=== PATIENT | female | born 1960 | race Caucasian/White ===

== ENCOUNTER 2021-05-04 07:24 | Outpatient (CLI) | payer BC, SELFPAY ==
--- NOTE | ~2021-05-04 | US_ITS ---
EXAMINATION: US right upper quadrant EXAM DATE: 05/04/2021 07:47 INDICATION: Elevated liver function tests. TECHNIQUE: Multiple grayscale and Doppler images of the abdomen right upper quadrant were obtained (b y a technologist who performed the scan) and subsequently reviewed. There is no prior study for yamini villalobos. FINDINGS: The pancreatic head and body are normal in appearance. The pancreatic tail is not visualized. The l iver has normal echogenicity and contour. There are no focal liver lesions identified. There is no evidence of intrahepatic biliary duct dilation. Portal venous flow was seen in the hepatopedal, nor mal direction and has normal Doppler waveform. No right-sided hydronephrosis. Common bile duct measures 2 mm, which is normal. The gallbladder wall is normal in thickness, with ex pected amount of distention. No sonographic evidence of pericholecystic fluid. There is no cholelit hiases. Technologist performing exam reports patient did not demonstrate sonographic Lozano's sign. Please note that this sign is less reliable in patients who have received pain medication. IMPRESSION: 1. Unremarkable abdominal ultrasound exam. Reviewed, dictated and finalized at location A. STAFF
== END 2021-05-04 07:25 | disposition home or self-care (01) ==
LOC: CHSIMG 07:27
PROVIDERS: PCP Nurse Practitioner; Visit Provider Nurse Practitioner
DX: R79.89 Other specified abnormal findings of blood chemistry (principal)
CPT/HCPCS: 76705

== ENCOUNTER 2021-07-19 19:15 | Emergency (ER) | payer BC, SELFPAY ==
--- NOTE | ~2021-07-19 | CT_ITS ---
EXAMINATION: CTA brain EXAM DATE: 07/19/2021 21:03 INDICATION: Worst headache in 8 years TECHNIQUE: Noncontrast head CT. Spiral CT angiogram cerebral arteries performed with intravenous in jection of 100 mL Omnipaque 350. Axial, coronal and sagittal images reviewed. Additional reformatted images created on dedicated 3-D workstation. The dose-length product (DLP) for this examination was 902.02 mGy-cm. The exposure was tailored according to patient size, and iterative reconstruction ( ASIR) was used as additional dose reduction technique. There is no prior study for comparison. FINDINGS: Carotid siphons are unremarkable. Right vertebral artery is dominant. There is left-sided p osterior communicating artery dominant posterior cerebral artery. There is no distal carotid or vert ebral basilar arterial dissection or fibromuscular dysplasia. There are no cerebral artery aneurysms. There is symmetric cerebral artery arborization. The sagittal, transverse and sigmoid sinuses enhanc e normally, no venous sinus thrombosis. Internal cerebral veins also enhance normally. There is no acute intraparenchymal hemorrhage. No evidence of intraparenchymal brain mass lesion. N o evidence of acute infarction. There is no mass effect or midline shift. There is no obstructive hyd rocephalus suspected. There are no extra-axial collections. IMPRESSION: No acute intracranial findings or cerebral artery aneurysm. Unremarkable exam. Reviewed, dictated and finalized at location G. IMPRESSION: No acute intracranial findings or cerebral artery aneurysm. Unremar kable exam.
[2021-07-19 19:20] VITALS: BP 180/96; PULSE 76; RESP 20; TEMP 35.7; O2SAT 98
--- NOTE | 2021-07-19 19:20 | ED.HA ---
HPI - Headache General Chief Complaint: Headache Stated Complaint: migraine, vomiting Time Seen by Provider: 07/19/21 19:21 Source: patient and RN notes reviewed Mode of arrival: ambulatory Limitations: no limitations History of Present Illness MD elicited complaint: migraine Onset (ago): hour(s) (4.5) Onset description: suddenly Location: diffuse and band-like Severity: moderate Quality & Timing: squeezing and progressively worsening Exacerbating factors: light and noise Relieving factors: nothing Context: occurred at rest Associated symptoms: nausea and vomiting Treatments prior to arrival: none Related Data Home Medications Medication Instructions Recorded Confirmed sertraline 100 mg PO HS 07/19/21 07/19/21 Allergies Allergy/AdvReac Type Severity Reaction Status Date / Time No Known Allergies Allergy Verified 07/19/21 19:28 Review of Systems Review of Systems: All systems reviewed & are unremarkable except as noted in HPI and below Constitutional: Constitutional: Denies chills and Denies fever(s) Gastrointestinal: Gastrointestinal: Denies diarrhea PMFSH Past Medical History Medical History (Updated 07/20/21 @ 00:00 by Kendrick Dagreg) Depression Migraine Exam Const: General: healthy appearing and no acute distress Nutritional Appearance: well nourished Orientation/consciousness: patient oriented x3 HENMT: Head: normal to inspection Ears: external ears normal and TM's normal bilaterally General nose exam: Normal external nose present Face and sinus: normal facial exam Mouth: Yes moist mucous membranes abnormal Eyes: Conjunctivae: conjunctivae normal Pupils: Equal, round and reactive pupils present EOM: EOMs intact bilaterally Direct Ophthalmoscopy: photophobia Neck: Neck: normal visual inspection Resp: Effort & Inspection: normal respiratory effort Auscultation: clear to auscultation bilaterally Cardio: Rate: regular rate Rhythm: regular rhythm GI: GI Palp: Yes Soft to palpation and No Tenderness to palpation present (GI) Auscultation: normal bowel sounds Back/Spine/Pelvis: Cervical Spine: cervical ROM normal Thoracic/Lumbar Spine: thoraco-lumbar ROM normal Skin: General skin exam: normal color Rashes: no rashes Neuro: General: patient oriented x3, moves all extremities, no meningeal signs, no focal motor deficits and CN's II-XI intact bilaterally Cranial nerves: Yes Nystagmus not present Speech: normal speech Gait exam (Neuro): Normal gait present Extrem: General: normal to inspection and no clubbing, cyanosis or edema Psych: Appearance: grossly normal and well kempt Mental Status: mental status grossly normal Affect: normal affect Attitude: cooperative Thought content: Yes Normal thought content present Course Vital Signs Vital signs: Vital Signs Temperature 35.7 C L 07/19/21 19:20 Pulse Rate 76 07/19/21 19:20 Respiratory Rate 20 07/19/21 19:20 Blood Pressure 180/96 H 07/19/21 19:20 Pulse Oximetry 98 07/19/21 19:20 Temperature 36.6 C 07/19/21 21:51 Pulse Rate 70 07/19/21 21:51 Respiratory Rate 20 07/19/21 21:51 Blood Pressure 158/95 H 07/19/21 21:51 Pulse Oximetry 98 07/19/21 21:51 MDM - Headache Lab Data Result diagrams: 07/19/21 19:47 07/19/21 19:47 Labs: Lab Results 07/19/21 07/19/21 Range/Units 19:47 19:47 WBC 8.6 (4.8-10.8) K/mm3 RBC 5.27 (4.20-5.40) M/mm3 Hgb 15.6 H (12.0-15.0) g/dL Hct 48.1 (35.0-49.0) % MCV 91.3 (78.0-102.0) fL MCH 29.6 (27.0-31.0) pg MCHC 32.4 (32.0-36.0) g/dL RDW 15.0 H (11.6-14.4) % Plt Count 143 L (150-420) K/mm3 MPV 12.9 H (9.2-11.8) fl Immature Gran % (Auto) 0.5 H (0.0-0.0) % Neut % (Auto) 54.4 (50.0-70.0) % Lymph % (Auto) 32.4 (18.0-42.0) % [place] % (Auto) 8.2 (2.0-11.0) % Eos % (Auto) 3.7 (1.0-6.0) % Baso % (Auto) 0.8 (0.0-1.0) % Lymph # (Auto) 2.77 (1.10-4.50) K/mm3 [place] # (Aut
[2021-07-19] MEDS: ONDANSETRON INJ 4 MG/2 ML VIAL IV PUSH ×2 (19:42→21:28)
[2021-07-19 19:54] LABS: Basophils Absolute Auto 0.07 K/mm3 (0.00-0.10); Basophils Percent Auto 0.8 % (0.0-1.0); Eosinophils Absolute Auto 0.32 K/mm3 (0.02-0.50); Eosinophils Percent Auto 3.7 % (1.0-6.0); Hematocrit 48.1 % (35.0-49.0); Hemoglobin 15.6 g/dL (12.0-15.0); Immature Granulocyte Absolute 0.04 K/mm3 (0.00-0.00); Immature Granulocyte Percent A 0.5 % (0.0-0.0); Lymphocytes Absolute Auto 2.77 K/mm3 (1.10-4.50); Lymphocytes Percent Auto 32.4 % (18.0-42.0); Mean Corpuscular HGB Conc 32.4 g/dL (32.0-36.0); Mean Corpuscular Hemoglobin 29.6 pg (27.0-31.0); Mean Corpuscular Volume 91.3 fL (78.0-102.0); Mean Platelet Volume 12.9 fl (9.2-11.8); Monocytes Percent Auto 8.2 % (2.0-11.0); Neutrophils Absolute Auto 4.7 K/mm3 (1.7-7.2); Neutrophils Percent Auto 54.4 % (50.0-70.0); Platelet Count Result 143 K/mm3 (150-420); Red Blood Count 5.27 M/mm3 (4.20-5.40); White Blood Count 8.6 K/mm3 (4.8-10.8)
[2021-07-19 19:58] LABS: Anion Gap 9 mmol/L (8-16); Blood Urea Nitrogen 16 mg/dL (7-18); Calcium 8.7 mg/dL (8.5-10.1); Carbon Dioxide 23 mmol/L (21-32); Chloride 103 mmol/L (98-108); Estimated CRCL calculation 75 ml/min; Estimated Glomerular Filt Rate > 60; Glucose 104 mg/dL (70-99); Osmolality Calculated 281 mOsm/kg (285-295); Potassium 3.6 mmol/L (3.5-5.1); Sodium 135 mmol/L (136-145)
[2021-07-19 21:00] VITALS: BP 142/88; PULSE 78; RESP 16; O2SAT 97
[2021-07-19] MEDS: diphenhydrAMINE HCl INJ 50 MG/ML VIAL IV PUSH (21:29)
[2021-07-19] MEDS: KETOROLAC 30 MG/ML VIAL (*BKC) IV PUSH (21:32)
[2021-07-19 21:51] VITALS: BP 158/95; PULSE 70; RESP 20; TEMP 36.6; O2SAT 98
== END 2021-07-19 21:54 | disposition home or self-care (01) ==
PROVIDERS: Emergency Provider Emergency Medicine; PCP Nurse Practitioner
DX: G44.209 Tension-type headache, unspecified, not intractable (principal)
CPT/HCPCS: 36415; 70496; 80048; 85025; 96374; 96375; 96376; 99285; J1200; J1885; J2405; Q9967

== ENCOUNTER 2021-07-28 10:49 | Outpatient (CLI) | payer BC, SELFPAY ==
--- NOTE | ~2021-07-28 | XR_ITS ---
EXAM: XR lumbar spine 2-3V HISTORY: LBP,RADIATES DOWN RT LEG,FALL X2 WITHIN 2MO COMPARISON: None available FINDINGS: 5 nonrib-bearing lumbar-type vertebral bodies with intact pedicles. No fracture or disloca tion. Vertebral bodies are normally aligned. Mild disc space narrowing at L3-4. Otherwise the spaces and vertebral body heights are maintained. Mild multilevel marginal osteophytosis. Normal facets. No pars defect. IMPRESSION: No acute fracture or traumatic malalignment in the lumbar spine. Mild multilevel degenerative disc di sease. Reviewed, dictated and finalized at location K. IMPRESSION: No acute fracture or traumatic malalignment in the lumbar spine. Mild multileve l degenerative disc disease.
== END 2021-07-28 10:50 | disposition home or self-care (01) ==
LOC: CHSLAB 10:51
PROVIDERS: PCP Nurse Practitioner; Visit Provider Nurse Practitioner
DX: M51.36 Other intervertebral disc degeneration, lumbar region (principal); Z68.26 Body mass index [BMI] 26.0-26.9, adult
CPT/HCPCS: 72100

== ENCOUNTER 2021-11-17 17:05 | Emergency (ER) | payer BC, SELFPAY ==
--- NOTE | ~2021-11-17 | XR_ITS ---
EXAM: XR wrist LT min 3V, XR forearm LT 2V DATE: 11/17/2021 17:42 HISTORY: Fall 10 days ago. pain with limited movement @ distal arm . COMPARISON: None available. FINDINGS: Decreased mineralization. Minimally displaced radial head fracture. No lytic or blastic le julian. Joint spaces are maintained. No erosion or periosteal change. Left elbow joint effusion. Soft t issues within normal limits. IMPRESSION: Minimally displaced left radial head fracture. Reviewed, dictated and finalized at location K. IMPRESSION: Minimally displaced left radial head fracture.
--- NOTE | 2021-11-17 17:26 | ED.UPPEXIN ---
HPI - Extremity Injury (Upper) General Chief Complaint: Extremity Injury, Upper Stated Complaint: L arm pain after fall Time Seen by Provider: 11/17/21 17:26 Source: patient and RN notes reviewed Mode of arrival: ambulatory Limitations: no limitations History of Present Illness HPI narrative: patient states she tripped over a root in the yd and fell onto her chest she thinks that her left forearm was in front of her chest when she fell. She still having pain in her left forearm and wrist and comes in for further evaluation. complaint: injury to: left, forearm and wrist Onset (ago): day(s) (10) Other injuries: none Handedness: right Place: outdoors Severity: moderate Relieving factors: rest Exacerbating factors: movement of extremity Context: fall Associated symptoms: denies other symptoms Related Data Home Medications Medication Instructions Recorded Confirmed sertraline 100 mg tablet 100 mg PO HS 07/19/21 11/17/21 Allergies Allergy/AdvReac Type Severity Reaction Status Date / Time No Known Allergies Allergy Verified 11/17/21 17:30 Review of Systems Review of Systems: All systems reviewed & are unremarkable except as noted in HPI and below PMFSH Past Medical History Medical History (Updated 11/17/21 @ 18:08 by Erich Horta MD) Depression Migraine Surgical History Surgical History (Updated 11/17/21 @ 17:33 by Erich Horta MD) No pertinent past surgical history Social History Social History (Updated 11/17/21 @ 17:33 by Erich Horta MD) Smoking packs per day: 0.25 Smoking cigarettes per day: 5.0 Smoking status: Current every day smoker Tobacco type: cigarettes Exam Const: General: healthy appearing, no acute distress and alert Nutritional Appearance: well nourished Orientation/consciousness: patient oriented x3 Limitations: no limitations HENMT: Head: normal to inspection Ears: external ears normal Eyes: Conjunctivae: conjunctivae normal Pupils: Equal, round and reactive pupils present EOM: EOMs intact bilaterally Neck: Neck: normal visual inspection Resp: Effort & Inspection: normal respiratory effort Auscultation: clear to auscultation bilaterally Cardio: Rate: regular rate Rhythm: regular rhythm GI: GI Palp: Yes Soft to palpation and No Tenderness to palpation present (GI) Auscultation: normal bowel sounds Back/Spine/Pelvis: Cervical Spine: cervical ROM normal Thoracic/Lumbar Spine: thoraco-lumbar ROM normal Skin: General skin exam: normal color Rashes: no rashes Wounds: no wounds Neuro: General: patient oriented x3, moves all extremities, no focal motor deficits and CN's II-XI intact bilaterally Speech: normal speech Gait exam (Neuro): Normal gait present Extrem: General: normal exam except as noted Left upper extremity: elbow/forearm tenderness of the mid-shaft forearm and of the proximal forearm and normal ROM; no swelling and wrist tenderness of the distal radius and normal ROM; no swelling Psych: Mental Status: mental status grossly normal Affect: normal affect Attitude: cooperative Course Vital Signs Vital signs: Vital Signs Temperature 36.8 C 11/17/21 17:32 Pulse Rate 79 11/17/21 17:32 Respiratory Rate 16 11/17/21 17:32 Blood Pressure 155/95 H 11/17/21 17:32 Pulse Oximetry 97 11/17/21 17:32 Oxygen Delivery Room Air 11/17/21 17:32 Temperature 36.8 C 11/17/21 17:32 Pulse Rate 79 11/17/21 17:32 Respiratory Rate 16 11/17/21 17:32 Blood Pressure 155/95 H 11/17/21 17:32 Pulse Oximetry 97 11/17/21 17:32 Oxygen Delivery Room Air 11/17/21 17:32 Procedures Orthopedic Splinting/Casting Injury #1: Splinting/Casting Date: 11/17/21 Side: left Upper Extremity Injury Location: forearm Upper Extremity Immobilizer: ulnar gutter OCL: long arm Pre-Procedure Neuro Vascular Exam: normal Post-Procedure Neuro Vascular Exam: normal Other Orthopedic Equipment
[2021-11-17 17:32] VITALS: BP 155/95; PULSE 79; RESP 16; TEMP 36.8; O2SAT 97
[2021-11-17 18:15] VITALS: BP 142/68; PULSE 72; RESP 16; TEMP 36.6; O2SAT 98
== END 2021-11-17 18:20 | disposition home or self-care (01) ==
PROVIDERS: Emergency Provider Emergency Medicine; PCP Nurse Practitioner
DX: S52.125A Nondisplaced fracture of head of left radius, initial encounter for closed fracture (principal); W01.0XXA Fall on same level from slipping, tripping and stumbling without subsequent striking against object, initial encounter
CPT/HCPCS: 29105; 73090; 73110; 99284; A4565

== ENCOUNTER 2022-07-07 11:14 | Emergency (ER) | payer BC, SELFPAY ==
--- NOTE | ~2022-07-07 | CT_ITS ---
EXAMINATION: CT abd pelvis lumbar wo con DATE: 07/07/2022 13:26 INDICATION: Epigastric pain, bloody stools and low back pain. TECHNIQUE: Computed tomography (CT) of the abdomen, pelvis and lumbar spine was performed without int ravenous contrast. Automated exposure control and iterative reconstruction technique were employed. T he dose-length product was 668.77 mGy-cm. COMPARISON: None FINDINGS: Mild left basilar atelectasis. Heart size is normal. No pericardial or pleural effusion. Diffuse subt le heterogeneous hepatic attenuation with nodular liver surface consistent with cirrhosis. Likely rec analization of the umbilical vein which appears increased in caliber near the liver and suggests seco ndary portal venous hypertension. Mild splenomegaly measuring 13.5 cm maximal transaxial length. Gall bladder, pancreas, left kidney and bilateral adrenal glands are normal. 1 mm and 2 mm nonobstructing stones in the right kidney. There is mild colonic diverticulosis with a sigmoid predominance. There i s wall thickening and inflammatory stranding centered about the sigmoid colon consistent with diverti culitis. Small bowel and appendix are normal. Bladder, anteverted uterus and lateral adnexa are wale l. No abscess or free intraperitoneal gas. Bones are unremarkable. Specifically there is normal align ment, vertebral body and disc heights and lumbar spine. No central canal or neural foraminal stenosis . IMPRESSION: 1. Radiographically uncomplicated sigmoid diverticulitis. 2. Cirrhosis with mild splenomegaly and likely recanalized umbilical vein consistent with secondary p ortal venous hypertension. 3. Nonobstructing right nephrolithiasis. Reviewed, dictated and finalized at location B. IMPRESSION: 1. Radiographically uncomplicated sigmoid diverticulitis. 2. Cirrhosis with mild splenomegaly and likely recanalized umbilical vein consi stent with secondary portal venous hypertension. 3. Nonobstructing right nephrolithiasis.
[2022-07-07 11:14] VITALS: BP 159/102; PULSE 94; RESP 16; TEMP 37.2; O2SAT 97
--- NOTE | 2022-07-07 11:25 | ED.BACK ---
HPI - Back Pain/Injury General Chief Complaint: Abdominal Pain Stated Complaint: back pain/abdominal pain Time Seen by Provider: 07/07/22 11:24 Source: patient Mode of arrival: ambulatory History of Present Illness HPI Narrative: 62-year-old female smoker with migraine, depression presents to the ER with a 3 day history of -- low back pain which radiates anteriorly. no no history of trauma. she has prior history of back pain. no radiation of the pain. No paresthesias of lower extremities. -- abdominal pain in the lower abdomen. No nausea/ vomiting. No fever. abdominal bloating --Patient is constipated but has mucoid stool. patient has blood in the stool. Patient has a few small blood clots in stool without any constanza bleeding. MD elicited complaint: back pain Pertinent past history: prior back pain Onset (ago): day(s) ( started 3 days ago) Timing: constant Severity: moderate Similar Symptoms Previously: Yes Quality: aching Location: lumbar spine Radiation: none Exacerbating factors: none Relieving factors: none Associated symptoms: abdominal pain Work related injury: No Related Data Allergies Allergy/AdvReac Type Severity Reaction Status Date / Time No Known Allergies Allergy Verified 07/07/22 11:23 Review of Systems Review of Systems: All systems reviewed & are unremarkable except as noted in HPI and below Constitutional: Constitutional: Reports as per HPI and Reports no additional constitutional complaints Eyes: Eyes: Reports as per HPI and Reports no additional eye complaints ENT: Reports system reviewed and no additional complaints, except as documented and Reports as per HPI Cardiovascular: Cardiovascular: Reports as per HPI and Reports no additional cardiovascular complaints Respiratory: Respiratory: Reports as per HPI and Reports no additional respiratory complaints Gastrointestinal: Gastrointestinal: Reports as per HPI, Reports no additional gastrointestinal complaints, Reports abdominal pain and Reports diarrhea Genitourinary: Genitourinary: Reports no additional female genitourinary complaints and Reports as per HPI Musculoskeletal: Musculoskeletal: Reports no additional musculoskeletal complaints, Reports as per HPI and Reports back pain Integumentary/Breasts: Skin/Breast: Reports system reviewed and no additional complaints, except as docu and Reports as per HPI Neurologic: Reports system reviewed and no additional complaints, except as documented and Reports as per HPI Psychiatric: Psychiatric: Reports no additional psychiatric complaints and Reports as per HPI Endocrine: Endocrine: Reports no additional endocrine complaints and Reports as per HPI Hematologic/Lymphatic: Hematologic/Lymphatic: Reports no additional hematologic/lymphatic complaints and Reports as per HPI Allergic/Immunologic: Allergic/Immunologic: Reports no additional allergic/immunologic complaints and Reports as per HPI PMFSH Past Medical History Medical History Depression Migraine Surgical History Surgical History No pertinent past surgical history Social History Social History Smoking packs per day: 0.25 Smoking cigarettes per day: 5.0 Smoking status: Current every day smoker Tobacco type: cigarettes Exam Const: General: healthy appearing Nutritional Appearance: well nourished Orientation/consciousness: patient oriented x3 Limitations: no limitations HENMT: Head: normal to inspection Ears: external ears normal Face/Nose/Sinus: Normal external nose present Face and sinus: normal facial exam Mouth: Yes Normal oral and palatal mucosa present Throat: posterior oropharynx normal Eyes: Conjunctivae: conjunctivae normal Pupils: Equal, round and reactive pupils present EOM: EOMs intact bilaterally Direct Ophthalmoscopy: no photophobia Nec
[2022-07-07 12:08] LABS: Appearance Urine Clear (Clear); Bilirubin Urine Negative (Negative); Blood Urine Negative (Negative); Color Urine Yellow (Yellow); Glucose Urine UA Negative (Negative); Ketones Urine Negative (Negative); Leukocyte Esterase Ur Negative LEU/UL (Negative); Nitrate Urine Negative (Negative); Protein Urine Negative (Negative)
[2022-07-07 12:10] LABS: Basophils Absolute Auto 0.03 K/mm3 (0.00-0.10); Basophils Percent Auto 0.3 % (0.0-1.0); Eosinophils Percent Auto 2.3 % (1.0-6.0); Hematocrit 43.3 % (35.0-49.0); Hemoglobin 14.2 g/dL (12.0-15.0); Immature Granulocyte Absolute 0.02 K/mm3 (0.00-0.00); Immature Granulocyte Percent A 0.2 % (0.0-0.0); Immature Platelet Fraction Pct 10.1 % (1.0-7.0); Lymphocytes Absolute Auto 1.67 K/mm3 (1.10-4.50); Lymphocytes Percent Auto 19.4 % (18.0-42.0); Mean Corpuscular HGB Conc 32.8 g/dL (32.0-36.0); Mean Corpuscular Hemoglobin 29.6 pg (27.0-31.0); Mean Corpuscular Volume 90.2 fL (78.0-102.0); Mean Platelet Volume 11.8 fl (9.2-11.8); Monocytes Absolute Auto 0.77 K/mm3 (0.10-0.90); Neutrophils Absolute Auto 5.9 K/mm3 (1.7-7.2); Neutrophils Percent Auto 68.8 % (50.0-70.0); Platelet Count Result 123 K/mm3 (150-420); Red Cell Distribution Width 14.6 % (11.6-14.4); White Blood Count 8.6 K/mm3 (4.8-10.8)
[2022-07-07 12:10] LABS: Add Urine Microscopic? NO
[2022-07-07] MEDS: KETOROLAC 30 MG/ML VIAL (*BKC) IM (12:17)
[2022-07-07 12:28] LABS: Lactic Acid Reflex 0.8 mmol/L (0.4-2.0)
[2022-07-07 12:30] LABS: Alanine Aminotransferase 88 U/L (14-59); Albumin Level 2.8 g/dL (3.4-5.0); Alkaline Phosphatase 297 U/L (46-116); Aspartate Amino Transferase 82 U/L (15-37); Blood Urea Nitrogen 17 mg/dL (7-18); Calcium 8.8 mg/dL (8.5-10.1); Carbon Dioxide 23 mmol/L (21-32); Estimated CRCL calculation 78 ml/min; Estimated Glomerular Filt Rate > 60; Glucose 94 mg/dL (70-99); Lipase 40 U/L (16-77); Troponin I 5.3 ng/L (0.00-60.4)
[2022-07-07 12:41] LABS: Partial Thromboplastin Time 27.9 SEC (23.90-30.70)
[2022-07-07 12:59] VITALS: BP 134/96; PULSE 81; RESP 18; O2SAT 98
[2022-07-07 13:06] LABS: Occult Blood Positive (Negative)
[2022-07-07 13:11] LABS: Anion Gap 8 mmol/L (8-16); Chloride 108 mmol/L (98-108); Osmolality Calculated 289 mOsm/kg (285-295); Potassium 4.1 mmol/L (3.5-5.1); Sodium 139 mmol/L (136-145)
[2022-07-07 15:00] VITALS: BP 141/88; PULSE 71; RESP 18; TEMP 36.6; O2SAT 97
--- NOTE | 2022-07-07 15:03 | ECG_ITS ---
Measurements Intervals [place] Rate: 78 P: 17 AR: 134 QRS: 34 QRSD: 98 T: 35 QT: 348 QTc: 398 Interpretive Statements SINUS RHYTHM NORMAL ECG NO PREVIOUS ECG AVAILABLE FOR COMPARISON Electronically Signed On 07-07-2022 15:57:54 CDT by Henry Vance D.O.
--- NOTE | 2022-07-08 13:10 | PC.NURSE ---
Addendum entered by Magali Cao RN 07/08/22 13:11: C.difficile toxin negative. no change in plan of care. Original Note: culture reports reviewed
--- NOTE | 2022-07-10 13:37 | PC.NURSE ---
FINAL STOOL RESULTS: Negative for Ecoli, Salmonella/shigella, Campylobacter EIA. No further action needed.
== END 2022-07-07 15:34 | disposition home or self-care (01) ==
PROVIDERS: Emergency Provider Internal Medicine Critical Care Medicine; PCP Nurse Practitioner
DX: K70.30 Alcoholic cirrhosis of liver without ascites (principal); D69.6 Thrombocytopenia, unspecified; K62.5 Hemorrhage of anus and rectum; I10 Essential (primary) hypertension; M54.50 Low back pain, unspecified
CPT/HCPCS: 36415; 72131; 74176; 80053; 81003; 82272; 83605; 83690; 84484; 85025; 85055; 85730; 87045; 87177; 87209; 87324; 87427; 93005; 96372; 99284; J1885

== ENCOUNTER 2022-08-03 07:02 | Emergency (ER) | payer BC, SELFPAY ==
--- NOTE | ~2022-08-03 | XR_ITS ---
Right wrist Technique: PA, oblique, lateral, and ulnar deviation views were obtained. Clinical History: Pain Findings: No acute fracture or dislocation is seen. Osseous alignment is anatomic. Joint spaces are p reserved. Soft tissues are unremarkable. Impression: Unremarkable right wrist radiographs. Reviewed, dictated and finalized at location . Impression: Unremarkable right wrist radiographs.
--- NOTE | ~2022-08-03 | CT_ITS ---
Non-contrast Head CT History: Status post fall COMPARISON: 07/19/2021 Technique: Axial non-contrast imaging of the brain was performed. Dose reduction technique was used on this scan by utilizing automated exposure control and iterative reconstruction technique. The dose -length product (DLP) was 605.33 mGy-cm. Findings: There is no evidence of intracranial hemorrhage, mass lesion, or acute infarct. Brain par enchyma appears normal. The ventricles and subarachnoid spaces are normal in size. The calvarium ap pears normal. The visualized paranasal sinuses and mastoid air cells are clear. Impression: No significant abnormality seen. Reviewed, dictated and finalized at location . Impression: No significant abnormality seen.
--- NOTE | ~2022-08-03 | XR_ITS ---
Right Shoulder Technique: AP and scapular Y, and axillary views were obtained. Clinical History: Status post fall Findings: No fracture or dislocation is seen. Osseous alignment is anatomic. The glenohumeral and acr omioclavicular joint spaces are preserved. Soft tissues are unremarkable. Impression: Unremarkable right shoulder radiographs. Reviewed, dictated and finalized at location . Impression: Unremarkable right shoulder radiographs.
[2022-08-03 07:07] VITALS: BP 123/80; PULSE 62; RESP 17; TEMP 36.1; O2SAT 97
--- NOTE | 2022-08-03 07:09 | ED.FALL ---
HPI - Fall General Chief Complaint: Fall Stated Complaint: Arm Pain Source: patient Mode of arrival: ambulatory History of Present Illness HPI Narrative: 62-year-old female, smoker with a history of depression, migraine presents to the ER after an accidental fall. She had to cut her dog this morning and dripped and fell on her face. She presents with -- abrasions on upper lip, chin, bilateral knees -- mucosal laceration of the upper lip -- right shoulder and right wrist pain with decreased range of motion no head injury. No ENT bleeding MD complaint: fall Onset (ago): hour(s) ( 1 hour ago) Fall from: standing Fall witnessed: no Place fall occurred: street Loss of consciousness: none Prolonged down time: no Symptoms prior to fall: none Context: tripped/slipped Location of injury: face Location of injury - extremities: Right: shoulder and forearm Severity: mild Quality: aching Associated symptoms (after fall): denies Related Data Home Medications Medication Instructions Recorded Confirmed escitalopram oxalate 5 mg tablet 5 mg PO DAILY 08/03/22 08/03/22 Allergies Allergy/AdvReac Type Severity Reaction Status Date / Time No Known Allergies Allergy Verified 08/03/22 07:09 Review of Systems Review of Systems: All systems reviewed & are unremarkable except as noted in HPI and below Constitutional: Constitutional: Reports as per HPI and Reports no additional constitutional complaints Eyes: Eyes: Reports as per HPI and Reports no additional eye complaints ENT: Reports system reviewed and no additional complaints, except as documented and Reports as per HPI Comments: mucosal laceration of the upper lip. Cardiovascular: Cardiovascular: Reports as per HPI and Reports no additional cardiovascular complaints Respiratory: Respiratory: Reports as per HPI and Reports no additional respiratory complaints Gastrointestinal: Gastrointestinal: Reports as per HPI and Reports no additional gastrointestinal complaints Genitourinary: Genitourinary: Reports no additional female genitourinary complaints and Reports as per HPI Musculoskeletal: Musculoskeletal: Reports no additional musculoskeletal complaints and Reports as per HPI Comments: right shoulder and right wrist pain Integumentary/Breasts: Skin/Breast: Reports system reviewed and no additional complaints, except as docu and Reports as per HPI Neurologic: Reports system reviewed and no additional complaints, except as documented and Reports as per HPI Psychiatric: Psychiatric: Reports no additional psychiatric complaints and Reports as per HPI Endocrine: Endocrine: Reports no additional endocrine complaints and Reports as per HPI Hematologic/Lymphatic: Hematologic/Lymphatic: Reports no additional hematologic/lymphatic complaints and Reports as per HPI Allergic/Immunologic: Allergic/Immunologic: Reports no additional allergic/immunologic complaints and Reports as per HPI [facility] Past Medical History Medical History Depression Migraine Surgical History Surgical History No pertinent past surgical history Social History Social History Smoking packs per day: 0.25 Smoking cigarettes per day: 5.0 Smoking status: Current every day smoker Tobacco type: cigarettes Exam Const: General: no acute distress Orientation/consciousness: patient oriented x3 Limitations: no limitations HENMT: Head: normal to inspection and contusion Head images: 1. abrasion of the upper lip 2. abrasion of the chin Ears: external ears normal and TM's normal bilaterally Face/Nose/Sinus: Normal external nose present Face and sinus: normal facial exam Mouth: Yes Normal oral and palatal mucosa present ( abrasion over the lips and 1 cm mucosal laceration of the upper lip. ) Teeth and gingiva: dentitio
[2022-08-03] MEDS: KETOROLAC 30 MG/ML VIAL (*BKC) IM (07:41)
[2022-08-03 08:17] VITALS: BP 121/80; PULSE 63; RESP 17; TEMP 36.8; O2SAT 100
== END 2022-08-03 08:19 | disposition home or self-care (01) ==
PROVIDERS: Emergency Provider Internal Medicine Critical Care Medicine; PCP Nurse Practitioner Adult Health
DX: S01.511A Laceration without foreign body of lip, initial encounter (principal); S43.401A Unspecified sprain of right shoulder joint, initial encounter; M25.531 Pain in right wrist; F17.210 Nicotine dependence, cigarettes, uncomplicated; W01.0XXA Fall on same level from slipping, tripping and stumbling without subsequent striking against object, initial encounter
CPT/HCPCS: 70450; 73030; 73110; 96372; 99284; A4565; J1885

== ENCOUNTER 2024-10-17 15:56 | Emergency (ER) | payer BC, SELFPAY ==
--- NOTE | ~2024-10-17 | XR_ITS ---
XR abdomen obstructive series Ordering provider: Jamey Matta MD History: . constipation . Comparison: None. FINDINGS: BOWEL: Nonobstructive bowel gas pattern. ORGANOMEGALY: None. SIGNIFICANT PATHOLOGIC CALCIFICATIONS: None. OTHER: No free air is seen under the diaphragm. IMPRESSION: NO ACUTE ABDOMINAL FINDINGS. Reviewed, dictated and finalized at location A.
[2024-10-17 16:04] VITALS: BP 136/80; PULSE 67; RESP 18; TEMP 36.8; O2SAT 96
[2024-10-17 17:06] VITALS: BP 128/79; PULSE 75; RESP 18; TEMP 36.6; O2SAT 98
--- NOTE | 2024-10-17 20:38 | ED.ABDPAIN ---
HPI - Abdominal Pain General Chief Complaint: Abdominal Pain Stated Complaint: constipation 1 week Source: patient Mode of arrival: ambulatory Limitations: no limitations History of Present Illness HPI narrative: patient is a 64-year-old female with abdominal pain / constipation over the past week. She was sent to the ER for evaluation to make sure she did not have a obstruction. MD elicited complaint: abdominal pain Pertinent past history: other ( Hypertension) Onset (ago): week(s) ( 4 days but basically in the past week) Pain Consistency: intermittent Location: diffuse Severity: mild Pain scale (0-10): 2 Quality: fullness and dull Radiation: none Migration to: no migration Exacerbating factors: other ( constipation) Relieving factors: nothing Context: confirms other ( patient has been having constipation for the last 4 days roughly and she is here for evaluation with some abdominal pain) Associated symptoms: denies other symptoms Treatments prior to arrival: other ( none) Related Data Home Medications ?Medication ?Instructions ?Recorded ?Confirmed ?Last Taken ?Type escitalopram oxalate 5 mg tablet 5 mg PO DAILY 08/03/22 08/12/22 Unknown History Allergies Allergy/AdvReac Type Severity Reaction Status Date / Time No Known Allergies Allergy Verified 08/12/22 11:03 Review of Systems Review of Systems: All systems reviewed & are unremarkable except as noted in HPI and below Constitutional: Constitutional: Reports no additional constitutional complaints Eyes: Eyes: Reports no additional eye complaints ENT: Reports system reviewed and no additional complaints, except as documented Cardiovascular: Cardiovascular: Reports no additional cardiovascular complaints Respiratory: Respiratory: Reports no additional respiratory complaints Gastrointestinal: Gastrointestinal: Reports no additional gastrointestinal complaints Genitourinary: Genitourinary: Reports no additional female genitourinary complaints Musculoskeletal: Musculoskeletal: Reports no additional musculoskeletal complaints Integumentary/Breasts: Skin/Breast: Reports system reviewed and no additional complaints, except as docu Neurologic: Reports system reviewed and no additional complaints, except as documented Psychiatric: Psychiatric: Reports no additional psychiatric complaints Endocrine: Endocrine: Reports no additional endocrine complaints Hematologic/Lymphatic: Hematologic/Lymphatic: Reports no additional hematologic/lymphatic complaints Allergic/Immunologic: Allergic/Immunologic: Reports no additional allergic/immunologic complaints PMFSH Past Medical History Medical History Migraine Depression Surgical History Surgical History No pertinent past surgical history Social History Social History Smoking packs per day: 0.25 Smoking cigarettes per day: 5.0 Smoking status: Former smoker Tobacco type: cigarettes Exam Const: General: healthy appearing Nutritional Appearance: well nourished Orientation/consciousness: patient oriented x3 Limitations: no limitations HENMT: Head: normal to inspection Ears: external ears normal Face/Nose/Sinus: Normal external nose present Eyes: Conjunctivae: conjunctivae normal Pupils: Equal, round and reactive pupils present EOM: EOMs intact bilaterally Neck: Neck: normal visual inspection Chest: Chest palpation & inspection: normal inspection of the chest Resp: Effort & Inspection: normal respiratory effort and not labored Auscultation: clear to auscultation bilaterally and no crackles Cardio: Rate: regular rate Rhythm: regular rhythm Heart sounds: no murmurs GI: Inspection: non-distended GI Palp: Yes Soft to palpation, Yes Tenderness to palpation present (GI) ( diffuse), No Guarding due to palpation present (GI), No Rigid due to palpation, No Hernia present, No Palpable mass present and No Rebound tenderness present Auscultation: bowels sounds not normal and Hypoactive bowel sounds present : General: Yes bladder normal to palpation Back/Spine/Pelvis: Back: no CVA tenderness Skin: General skin exam: normal color Rashes: no rashes Wounds: no wounds Neuro: General: patient oriented x3 Cranial nerves: Yes Nystagmus not present Speech: normal speech Gait exam (Neuro): Normal gait present Extrem: General: normal to inspection Psych: Mental Status: mental status grossly normal Affect: normal affect Attitude: cooperative Course Vital Signs Vital signs: Vital Signs Temperature 36.8 C 10/17/24 16:04 Pulse Rate 67 10/17/24 16:04 Respiratory Rate 18 10/17/24 16:04 Blood Pressure 136/80 10/17/24 16:04 Pulse Oximetry 96 10/17/24 16:04 Oxygen Delivery Room Air 10/17/24 16:04 Temperature 36.6 C 10/17/24 17:06 Pulse Rate 75 10/17/24 17:06 Respiratory Rate 18 10/17/24 17:06 Blood Pressure 128/79 10/17/24 17:06 Pulse Oximetry 98 10/17/24 17:06 Oxygen Delivery Room Air 10/17/24 17:06 MDM - Abdominal Pain MDM Narrative Medical decision making narrative: patient is a 64-year-old female with constipation and abdominal pain. We will start with a abdominal acute series of the abdomen. X-rays were negative and we will send home with a plan to use Mag citrate and enema. Imaging Data Attestation: I personally reviewed and interpreted this imaging study as follows: Radiologist's impression: ITS Impressions Abdomen X-Ray 10/17/24 16:38 IMPRESSION: NO ACUTE ABDOMINAL FINDINGS. Discharge Plan Discharge Clinical Impression: Constipation Qualifiers: Constipation type: unspecified constipation type Qualified Code(s): K59.00 - Constipation, unspecified Patient Disposition: Home Condition: Stable Instructions: Constipation (DC) Additional Instructions: Please go to [facility] and get magnesium citrate and drink half the bottle when you get home and if she still have not had bowel movement in 3-4 hours repeat the other half of the bottle. At the same time, please use enema as directed. You may use a few enemas spaced apart as directed. If no bowel movement in 1 day more please reach out to a doctor about further testing and monitoring. You may also consider Gas-X for some of the cramping pains. Patient Language: [place] Prescriptions: No Action carvedilol [Coreg] 3.125 mg tablet 3.125 mg PO BID Qty: 60 0RF Rx Instructions: must administer with a meal/food escitalopram oxalate 5 mg tablet 5 mg PO DAILY diclofenac sodium 50 mg tablet,delayed release (DR/EC) 50 mg PO Q12H PRN (Reason: pain) Qty: 20 0RF Follow-up/Referrals: Cinthia,Maine Romo, [facility] [Primary Care Provider] - Time of Disposition: 17:02
== END 2024-10-17 17:04 | disposition home or self-care (01) ==
PROVIDERS: Emergency Provider Emergency Medicine; PCP Nurse Practitioner Family
DX: K59.00 Constipation, unspecified (principal); I10 Essential (primary) hypertension; Z87.891 Personal history of nicotine dependence
CPT/HCPCS: 74019; 99283